=== PATIENT | male | born 1970 | race Caucasian/White ===

== ENCOUNTER → 2016-11-02 | Outpatient (CLI) | payer BC ==
--- NOTE | ~2016-11-02 | HM ---
Unit #: [id number] #: [id number] Patient: JUANCARLOS LEWIS [id number] [address] [address] [id number] MR#: [id number] NAME: JUANCARLOS LEWIS : 1970 SEX: M STUDY DATE/TIME: 11/02/2016 UNIT: [facility] ROOM: STUDY DESCRIPTION: Holter monitor Attending Physician: Bam Multani M.D. Referring Physician: Bam Multani M.D. Primary Care Physician: Bam Multani M.D. CARDIOLOGY REPORT EXAM Holter monitor. DATE APPLIED 11/02/2016 DATE SCANNED 11/05/[address] Bam Multani READ BY Corona Echevarria M.D. INDICATION Palpitations. SUMMARY The patient was monitored for 24 hours. A total of 111,394 QRS complexes were analyzed. The average heart rate was 78 beats per minute. The rhythm was sinus. Minimum heart rate of 43 beats per minute occurred at 4:30 a.m. The maximum heart rate of 125 beats per minute occurred at approximately 5:40 p.m. There were no significant pauses. The longest R-R interval occurred at approximately 7:45 a.m. during a period of sinus arrhythmia. SUPRAVENTRICULAR ECTOPY: There were 21 isolated beats with no runs. VENTRICULAR ECTOPY: There were 112 isolated beats with no runs. SYMPTOMS: The patient experienced palpitations when getting up from the couch. The patient was in normal sinus rhythm, heart rate 58 beats per minute. This occurred at approximately 4 a.m. No other symptoms or patient identified events were noted. IMPRESSION 1. Rare supraventricular and ventricular ectopy, none of which was symptomatic. 2. Symptoms did not reflect dysrhythmia. Unit #: [id number] #: [id number] Patient: JUANCARLOS LEWIS Dictated by... Richard Tomlin/scott TD: 11/07/2016 11:55 JOB #: [id number] CARDIOLOGY REPORT Page 1 of 1 X Corona Echevarria MD HOLTER MONITOR REPORT
== END | disposition home or self-care (01) ==
LOC: CECH 13:06
DX: R00.2 Palpitations (principal); R01.1 Cardiac murmur, unspecified; I36.1 Nonrheumatic tricuspid (valve) insufficiency
CPT/HCPCS: 93225; 93226; 93306